=== PATIENT | female | born 1990 | race African-American/Black ===

== ENCOUNTER 2023-04-01 17:37 | Emergency (ER) | payer OTHER ==
[~2023-04-01] VITALS: Ht 172.7 cm; Wt 110.0 kg
[2023-04-01 17:41] VITALS: O2SAT 100
[2023-04-01 18:47] LABS: BASOPHILS % 0.6 % (0.0-2.0); EOSINOPHILS % 0.3 % (0.0-5.0); HEMATOCRIT. 44.4 % (36.0-48.0); HEMOGLOBIN. 14.9 g/dL (12.0-16.0); LYMPHOCYTES % 12.7 % (20.0-50.0); MEAN CORPUSCULAR HEMOGLOBIN 30.4 pg (28.0-32.0); MEAN CORPUSCULAR HGB CONC 33.5 g/dL (31.0-37.0); MEAN CORPUSCULAR VOLUME 90.8 fL (81.0-99.0); MEAN PLATELET VOLUME 8.4 fl (7.4-10.4); MONOCYTES % 13.6 % (2.0-8.0); NEUTROPHILS % 72.8 % (40.0-76.0); PLATELET 237 x1000/uL (130-400); RED BLOOD CELL COUNT 4.89 mill/uL (4.2-5.4); RED CELL DISTRIBUTION WIDTH 14.7 % (11.6-14.6); WHITE BLOOD COUNT 10.9 x1000/uL (4.5-11.0)
[2023-04-01 19:03] LABS: ACETAMINOPHEN < 2 ug/mL (10-30); ALANINE AMINOTRANSFERASE 8 IU/L (10-49); ALBUMIN 4.2 g/dL (3.2-4.8); ASPARTATE AMINOTRANSFERASE 16 IU/L (<34); BILIRUBIN TOTAL 0.6 mg/dL (0.1-1.0); CALCIUM 9.2 mg/dL (8.7-10.4); CARBON DIOXIDE 26 mEq/L (21-32); CHLORIDE 103 mEq/L (98-107); CREATININE 0.7 mg/dL (0.6-1.0); GLUCOSE 91 mg/dL (70-105); POTASSIUM 3.5 mEq/L (3.5-5.1); PROTEIN TOTAL 7.9 g/dL (6.0-8.3); SODIUM 136 mEq/L (136-145); THYROID STIMULATING HORMONE 0.92 uIU/mL (0.55-4.78); UREA NITROGEN BLOOD 5 mg/dL (9-23)
[2023-04-01 19:08] LABS: ETHANOL BLOOD < 10 mg/dL (<10)
[2023-04-01 21:00] LABS: CLARITY URINE CLEAR (CLEAR); COLOR URINE YELLOW (YELLOW); GLUCOSE URINE NEGATIVE (NEGATIVE); KETONES URINE 2+ (NEGATIVE); LEUKOCYTE ESTERASE URINE NEGATIVE (NEGATIVE); NITRITE URINE NEGATIVE (NEGATIVE); OCCULT BLOOD URINE TRACE (NEGATIVE); PH URINE 6.5 (4.5-8.0); PROTEIN URINE 1+ (NEGATIVE); SPECIFIC GRAVITY URINE 1.014 (1.005-1.030)
[2023-04-01 21:19] LABS: BACTERIA URINE TRACE; RBC URINE 0-2 /hpf (0-2); SQUAMOUS EPITHELIAL CELL URINE FEW /lpf (RARE/1+); WBC URINE 0-2 /hpf (0-2)
[2023-04-01 21:25] LABS: *AMPHETAMINES SCREEN URINE PRESUMPTIVE POSITIVE (NEGATIVE); *BARBITURATES SCREEN URINE NEGATIVE (NEGATIVE); *BENZODIAZEPINES SCREEN URINE NEGATIVE (NEGATIVE); *COCAINE SCREEN URINE NEGATIVE (NEGATIVE); CANNABINOID URINE SCREEN NEGATIVE (NEGATIVE); ECSTASY MDMA SCREEN URINE CONF.TEST INDICATED (NEGATIVE); METHADONE URINE SCREEN Neg (NEGATIVE); OPIATES URINE SCREEN NEGATIVE (NEGATIVE); PHENCYCLIDINE URINE SCREEN NEGATIVE (NEGATIVE)
[2023-04-02] MEDS: METOPROLOL SUCCINATE 50MG ER TABLET PO STA (02:11)
[2023-04-02] MEDS: HYDRALAZINE 20MG/ML VIAL IV NR (03:46)
[2023-04-02] MEDS: SODIUM CHLORIDE 0.9% 1,000 ML IV ONE ×2 (03:46→06:00)
[2023-04-02] MEDS: AMLODIPINE 5MG TABLET PO SCH (05:00)
[2023-04-03 11:07] LABS: HCG SCREEN NEGATIVE
[2023-04-03] MEDS: OLANZAPINE 5MG TABLET ODT PO SCH (11:46)
[2023-04-03] MEDS ORDERED: CLONIDINE 0.1MG TABLET PO PRN (22:30)
[2023-04-03] MEDS: CLONIDINE 0.1MG TABLET PO NR (23:38)
[2023-04-03] MEDS: CLONIDINE 0.2MG TABLET PO ONE (23:39)
[2023-04-05 16:20] VITALS: BP 129/80; PULSE 81; RESP 17; TEMP 97.4
== END 2023-04-05 18:35 ==
LOC: ER 17:47
DX: F32.A Depression, unspecified (principal); F15.10 Other stimulant abuse, uncomplicated; R51.9 Headache, unspecified; Z20.822 Contact with and (suspected) exposure to COVID-19; Z98.890 Other specified postprocedural states; Z86.59 Personal history of other mental and behavioral disorders
CPT/HCPCS: 80053; 80305; 81003; 81025; 80307; 80329; 80320; 84703; 84443; 85025; 36415; 96361; 96374; 99285; 87426; 70450; J0360; J7030; G0480

== ENCOUNTER 2023-11-06 10:58 | Emergency (ER) | payer MEDICAID, MEDICARE, OTHER ==
[~2023-11-06] VITALS: Ht 170.2 cm; Wt 137.0 kg
[2023-11-06 11:18] VITALS: O2SAT 97
[2023-11-06] MEDS ORDERED: HALOPERIDOL LACTATE 5MG/ML VIAL IM ONE (14:15)
[2023-11-06] MEDS ORDERED: DIPHENHYDRAMINE 50MG/ML VIAL IM ONE (14:15)
[2023-11-06] MEDS: DIPHENHYDRAMINE 50MG/ML VIAL IM NR (16:51)
[2023-11-06] MEDS: LORAZEPAM 2MG/ML INJ IM ONE (16:51)
[2023-11-06] MEDS: HALOPERIDOL LACTATE 5MG/ML VIAL IM NR (16:51)
[2023-11-06] MEDS: OLANZAPINE 10 MG/VIAL IM ONE (18:37)
[2023-11-06 20:14] LABS: BASOPHILS % 0.6 % (0.0-2.0); EOSINOPHILS % 2.1 % (0.0-5.0); HEMATOCRIT. 40.6 % (36.0-48.0); HEMOGLOBIN. 13.4 g/dL (12.0-16.0); LYMPHOCYTES % 20.8 % (20.0-50.0); MEAN CORPUSCULAR HEMOGLOBIN 30.8 pg (28.0-32.0); MEAN CORPUSCULAR HGB CONC 32.9 g/dL (31.0-37.0); MEAN CORPUSCULAR VOLUME 93.5 fL (81.0-99.0); MEAN PLATELET VOLUME 8.1 fl (7.4-10.4); MONOCYTES % 13.5 % (2.0-8.0); PLATELET 269 x1000/uL (130-400); RED BLOOD CELL COUNT 4.34 mill/uL (4.2-5.4); RED CELL DISTRIBUTION WIDTH 14.3 % (11.6-14.6); WHITE BLOOD COUNT 6.4 x1000/uL (4.5-11.0)
[2023-11-06 20:20] LABS: CHLORIDE 110 mEq/L (98-107); POTASSIUM 3.5 mEq/L (3.5-5.1); SODIUM 140 mEq/L (136-145)
[2023-11-06 20:21] LABS: CARBON DIOXIDE 25 mEq/L (21-32)
[2023-11-06 20:22] LABS: CALCIUM 9.6 mg/dL (8.7-10.4)
[2023-11-06 20:26] LABS: CREATININE 0.8 mg/dL (0.6-1.0)
[2023-11-06 20:27] LABS: GLUCOSE 88 mg/dL (70-105); UREA NITROGEN BLOOD 9 mg/dL (9-23)
[2023-11-06 20:28] LABS: ACETAMINOPHEN < 2 ug/mL (10-30); ALANINE AMINOTRANSFERASE < 7 IU/L (10-49); ALBUMIN 4.2 g/dL (3.2-4.8); ASPARTATE AMINOTRANSFERASE 14 IU/L (<34); HCG SCREEN NEGATIVE
[2023-11-06 20:29] LABS: BILIRUBIN DIRECT 0.2 mg/dL (<=3.0); BILIRUBIN TOTAL 0.6 mg/dL (0.1-1.0); PROTEIN TOTAL 7.4 g/dL (6.0-8.3)
[2023-11-06 20:42] LABS: ETHANOL BLOOD < 10 mg/dL (<10)
[2023-11-07 23:49] LABS: CLARITY URINE CLOUDY (CLEAR); COLOR URINE DARK YELLOW (YELLOW); GLUCOSE URINE NEGATIVE (NEGATIVE); KETONES URINE TRACE (NEGATIVE); LEUKOCYTE ESTERASE URINE 1+ (NEGATIVE); NITRITE URINE NEGATIVE (NEGATIVE); OCCULT BLOOD URINE NEGATIVE (NEGATIVE); PH URINE 5.5 (4.5-8.0); PROTEIN URINE NEGATIVE (NEGATIVE); SPECIFIC GRAVITY URINE 1.023 (1.005-1.030)
[2023-11-07 23:59] LABS: *AMPHETAMINES SCREEN URINE PRESUMPTIVE POSITIVE (NEGATIVE)
[2023-11-08] LABS: *BARBITURATES SCREEN URINE NEGATIVE (NEGATIVE); *BENZODIAZEPINES SCREEN URINE NEGATIVE (NEGATIVE); *COCAINE SCREEN URINE NEGATIVE (NEGATIVE); CANNABINOID URINE SCREEN PRESUMPTIVE POSITIVE (NEGATIVE); ECSTASY MDMA SCREEN URINE CONF.TEST INDICATED (NEGATIVE); METHADONE URINE SCREEN NEGATIVE (NEGATIVE); OPIATES URINE SCREEN NEGATIVE (NEGATIVE); PHENCYCLIDINE URINE SCREEN NEGATIVE (NEGATIVE)
[2023-11-08 01:55] LABS: RBC URINE 0-2 /hpf (0-2); SQUAMOUS EPITHELIAL CELL URINE 3+ /lpf (RARE/1+)
[2023-11-08 01:56] LABS: BACTERIA URINE 1+
[2023-11-08 01:58] LABS: CALCIUM OXALATE CRYSTALS URINE 1+ /lpf
[2023-11-08 21:22] VITALS: BP 128/85; PULSE 65; RESP 16; TEMP 36.66960; O2SAT 100
== END 2023-11-08 21:48 ==
LOC: ER 11:11
DX: F23 Brief psychotic disorder (principal); Z20.822 Contact with and (suspected) exposure to COVID-19
CPT/HCPCS: 80076; 80305; 80048; 81003; 80307; 80329; 80320; 84703; 85025; 36415; 96372; 99285; 87426; J3490; J1200; J1630; J2060; Z7610; G0480

== ENCOUNTER 2023-12-17 20:36 | Emergency (ER) | payer OTHER ==
[~2023-12-17] VITALS: Ht 167.6 cm; Wt 116.0 kg
[2023-12-17 20:38] VITALS: O2SAT 98
[2023-12-17 22:11] LABS: HEMATOCRIT. 39.2 % (36.0-48.0); HEMOGLOBIN. 12.9 g/dL (12.0-16.0); MEAN CORPUSCULAR HEMOGLOBIN 30.9 pg (28.0-32.0); MEAN CORPUSCULAR HGB CONC 32.9 g/dL (31.0-37.0); MEAN PLATELET VOLUME 8.6 fl (7.4-10.4); PLATELET 228 x1000/uL (130-400); RED BLOOD CELL COUNT 4.17 mill/uL (4.2-5.4); RED CELL DISTRIBUTION WIDTH 14.7 % (11.6-14.6); WHITE BLOOD COUNT 8.2 x1000/uL (4.5-11.0)
[2023-12-17 22:13] LABS: DIFFERENTIAL COMMENT 1
[2023-12-17 22:20] LABS: CHLORIDE 109 mEq/L (98-107); POTASSIUM 3.9 mEq/L (3.5-5.1); SODIUM 141 mEq/L (136-145)
[2023-12-17 22:21] LABS: CALCIUM 9.4 mg/dL (8.7-10.4); CARBON DIOXIDE 26 mEq/L (21-32); HCG SCREEN NEGATIVE
[2023-12-17 22:25] LABS: PLATELET ESTIMATE NORMAL
[2023-12-17 22:26] LABS: CREATININE 0.8 mg/dL (0.6-1.0); GLUCOSE 81 mg/dL (70-105); UREA NITROGEN BLOOD 9 mg/dL (9-23)
[2023-12-17 22:28] LABS: ACETAMINOPHEN < 2 ug/mL (10-30); ETHANOL BLOOD < 10 mg/dL (<10)
[2023-12-19] MEDS: RISPERIDONE 1MG TABLET PO SCH (15:42)
[2023-12-19 22:57] LABS: CLARITY URINE CLOUDY (CLEAR); COLOR URINE DARK YELLOW (YELLOW); GLUCOSE URINE NEGATIVE (NEGATIVE); KETONES URINE TRACE (NEGATIVE); LEUKOCYTE ESTERASE URINE TRACE (NEGATIVE); NITRITE URINE NEGATIVE (NEGATIVE); OCCULT BLOOD URINE NEGATIVE (NEGATIVE); PH URINE 6.5 (4.5-8.0); PROTEIN URINE TRACE (NEGATIVE); SPECIFIC GRAVITY URINE 1.027 (1.005-1.030)
[2023-12-19 23:06] LABS: *AMPHETAMINES SCREEN URINE PRESUMPTIVE POSITIVE (NEGATIVE); *BARBITURATES SCREEN URINE NEGATIVE (NEGATIVE); *BENZODIAZEPINES SCREEN URINE NEGATIVE (NEGATIVE); *COCAINE SCREEN URINE NEGATIVE (NEGATIVE); CANNABINOID URINE SCREEN NEGATIVE (NEGATIVE); ECSTASY MDMA SCREEN URINE NEGATIVE (NEGATIVE); METHADONE URINE SCREEN NEGATIVE (NEGATIVE); OPIATES URINE SCREEN NEGATIVE (NEGATIVE); PHENCYCLIDINE URINE SCREEN NEGATIVE (NEGATIVE)
[2023-12-19 23:25] LABS: BACTERIA URINE 3+; SQUAMOUS EPITHELIAL CELL URINE 2+ /lpf (RARE/1+)
[2023-12-19 23:26] LABS: MUCUS URINE 3+ /lpf (< = 2+); RBC URINE 0-2 /hpf (0-2); WBC URINE 0-2 /hpf (0-2)
[2023-12-19 23:27] LABS: AMORPHOUS SEDIMENT URINE 1+ /lpf
[2023-12-20 12:00] VITALS: BP 146/72; PULSE 81; RESP 18; TEMP 37.11408; O2SAT 99
== END 2023-12-20 14:14 ==
LOC: ER 20:36
DX: F06.2 Psychotic disorder with delusions due to known physiological condition (principal); F12.10 Cannabis abuse, uncomplicated; F15.10 Other stimulant abuse, uncomplicated; I10 Essential (primary) hypertension; E11.9 Type 2 diabetes mellitus without complications; F32.A Depression, unspecified; Z20.822 Contact with and (suspected) exposure to COVID-19; Z86.59 Personal history of other mental and behavioral disorders
CPT/HCPCS: 36415; 80048; 80305; 80307; 80320; 80329; 81003; 84703; 85025; 87426; 99285; G0480